=== PATIENT | male | born 1980 | race Caucasian/White ===

== ENCOUNTER 2018-01-07 17:11 | Emergency (ER) | payer BC, OTHER ==
[~2018-01-07] VITALS: Ht 188 cm; Wt 85.0 kg
[2018-01-07] MEDS ORDERED: iohexol 350MG/ML 100ml bottle IV ONE (18:34)
[2018-01-07] MEDS ORDERED: LIDOcaine 1.5% w/epinephrine 1:200,000 5ml ampul IJ ONE (18:35)
[2018-01-07 19:15] VITALS: BP 123/78
== END 2018-01-07 20:38 | disposition home or self-care (01) ==
LOC: ER 17:11
DX: S11.91XA Laceration without foreign body of unspecified part of neck, initial encounter (principal); W22.8XXA Striking against or struck by other objects, initial encounter; Y93.89 Activity, other specified; Y92.89 Other specified places as the place of occurrence of the external cause; Y99.8 Other external cause status
CPT/HCPCS: 12002; 70498; 99284; A6449; J3490; J7030; Q9967